=== PATIENT | female | born 1970 | race Caucasian/White ===

== ENCOUNTER 2023-09-23 06:17 | Day surgery (SDC) | payer BC, SELFPAY ==
[2023-09-17 06:44] VITALS: BMI 30.3
[2023-09-23] VITALS (9 sets, daily range): BP systolic 107–134; BP diastolic 65–80; BMI 30.3
[2023-09-23] MEDS: NORMOSOL-R 1000 IV (09:12)
[2023-09-23] MEDS: CELEBREX 200 MG PO (09:13)
[2023-09-23] MEDS: TYLENOL 1000 MG PO (09:13)
[2023-09-23] MEDS: VANCOCIN 200 IV (09:48)
[2023-09-23] MEDS: DILAUDID 0.5 MG IV ×2 (12:10→12:40)
[2023-09-23] MEDS: ZOFRAN 4 MG IV (12:27)
== END 2023-09-23 13:40 | disposition home or self-care (01) ==
LOC: SDS 06:17
PROVIDERS: ATTENDING PHYSICIAN Orthopaedic Surgery Hand Surgery
DX: M18.11 Unilateral primary osteoarthritis of first carpometacarpal joint, right hand (principal)
CPT/HCPCS: 25447; 36415; 87070; 93005